=== PATIENT | male | born 1990 | race Caucasian/White ===

== ENCOUNTER 2022-02-25 10:37 | Emergency (ER) | payer SELFPAY ==
[~2022-02-25] VITALS: Ht 170.2 cm; Wt 85.0 kg
[2022-02-25] MEDS ORDERED: BACITRACIN ZINC OINT UDPKT TOP ONE (11:30)
[2022-02-25] MEDS ORDERED: IBUPROFEN 600MG TABLET PO ONE (11:30)
[2022-02-25] MEDS ORDERED: TETANUS, DIPHTHERIA, PERTUSSIS VAC/PF 0.5ML (>10YR OLD) IM ONE ×2 (11:30→12:45)
[2022-02-25] MEDS ORDERED: IBUPROFEN 600MG TABLET PO NR (12:45)
[2022-02-25] MEDS: BACITRACIN ZINC OINT UDPKT TOP NR ×2 (12:57→13:44)
[2022-02-25] MEDS ORDERED: LIDOCAINE HCL/EPINEPHRINE 1%-EPI 1:100,000 20 ML VIAL INFIL ONE (13:45)
[2022-02-25] MEDS ORDERED: CEPH500T PO (14:20)
[2022-02-25] MEDS ORDERED: IBUP-2029 PO (14:20)
[2022-02-25 14:31] VITALS: BP 123/62
== END 2022-02-25 14:32 | disposition home or self-care (01) ==
LOC: ER 10:50
DX: S81.811A Laceration without foreign body, right lower leg, initial encounter (principal); I10 Essential (primary) hypertension; F41.9 Anxiety disorder, unspecified; X58.XXXA Exposure to other specified factors, initial encounter; Y93.89 Activity, other specified; Y92.89 Other specified places as the place of occurrence of the external cause
CPT/HCPCS: 73590; 90471; 90715; 99283

== ENCOUNTER 2022-03-02 12:40 | Emergency (ER) | payer MEDICAID ==
[~2022-03-02] VITALS: Ht 167.6 cm; Wt 65.0 kg
[~2022-03-02 12:40] MED LIST: CEPH500T PO; IBUP-2029 PO
[2022-03-02 15:21] VITALS: BP 115/71
== END 2022-03-02 15:21 | disposition home or self-care (01) ==
LOC: ER 12:40
DX: Z48.00 Encounter for change or removal of nonsurgical wound dressing (principal)
CPT/HCPCS: 99281

== ENCOUNTER 2022-03-17 19:27 | Emergency (ER) | payer MEDICAID ==
[~2022-03-17] VITALS: Ht 165.1 cm; Wt 69.8 kg
[2022-03-17 19:54] VITALS: BP 124/87
== END 2022-03-17 20:27 | disposition home or self-care (01) ==
LOC: ER 19:27
DX: Z48.02 Encounter for removal of sutures (principal); I10 Essential (primary) hypertension
CPT/HCPCS: 99281